=== PATIENT | male | born 1980 | race Two or more races ===

== ENCOUNTER 2020-01-03 20:19 | Emergency (ER) | payer MEDICAID ==
[~2020-01-03] VITALS: Ht 180.3 cm; Wt 77.3 kg
[2020-01-03] MEDS ORDERED: FLUORESCEIN SODIUM 1 MG STRIP OU ONE (22:45)
[2020-01-03] MEDS ORDERED: PROPARACAINE HCL 0.5% 15 ML OPHTHALMIC SOLUTION OU ONE (22:45)
[2020-01-03] MEDS ORDERED: IBUPROFEN 800 MG TABLET PO ONE (23:30)
[2020-01-04 00:06] VITALS: BP 140/97
== END 2020-01-04 00:53 | disposition home or self-care (01) ==
LOC: EMS 20:23
DX: T15.12XA Foreign body in conjunctival sac, left eye, initial encounter (principal); F12.10 Cannabis abuse, uncomplicated; W45.8XXA Other foreign body or object entering through skin, initial encounter; Y93.89 Activity, other specified; Y92.89 Other specified places as the place of occurrence of the external cause; Y99.0 Civilian activity done for income or pay
CPT/HCPCS: 99173

== ENCOUNTER 2023-09-23 09:19 | Inpatient (IN) | payer MEDICAID, OTHER ==
[~2023-09-23] VITALS: Ht 185.4 cm; Wt 74.6 kg
[2023-09-23 12:59] LABS: PH,URINE DRUG SCREEN 5.5 (5.0-8.0)
[2023-09-23 13:06] LABS: ALCOHOL, URINE DRUG SCREEN NEGATIVE (NEGATIVE); AMPHET/METH SCREEN,URINE NEGATIVE (NEGATIVE); BARBITURATE SCREEN, URINE NEGATIVE (NEGATIVE); BENZODIAZEPINES SCREEN,URINE NEGATIVE (NEGATIVE); CANNABINOID SCREEN,URINE POSITIVE (NEGATIVE); COCAINE SCREEN,URINE NEGATIVE (NEGATIVE); METHADONE SCREEN, URINE NEGATIVE (NEGATIVE); OPIATE SCREEN,URINE NEGATIVE (NEGATIVE); PHENCYCLIDINE SCREEN,URINE NEGATIVE (NEGATIVE)
[2023-09-23 13:15] LABS: BASOPHILS % (AUTO) 1.5 % (0.0-2.0); EOSINOPHILS % (AUTO) 1.3 % (1.0-6.0); HEMATOCRIT 42.7 % (41-53); HEMOGLOBIN 14.3 g/dL (13.5-17.5); LYMPHOCYTES # (AUTO) 1.1 K/uL (1.0-4.8); LYMPHOCYTES % (AUTO) 20.8 % (22.0-44.0); MEAN CORPUSCULAR HGB CONC 33.5 G/dL (31.0-37.0); MEAN CORPUSCULAR VOLUME 90 fL (80-100); MONOCYTES # (AUTO) 0.5 K/uL (0.1-1.0); MONOCYTES % (AUTO) 8.9 % (2.0-9.0); NEUTROPHILS # (AUTO) 3.6 K/uL (1.8-7.7); NEUTROPHILS % (AUTO) 67.5 % (40.0-70.0); PLATELET COUNT (AUTO) 203 K/uL (150-450); RED BLOOD CELL COUNT(AUTO) 4.77 MIL/uL (4.50-5.90); RED CELL DISTRIBUTION WIDTH 13.9 % (11.5-14.5); WHITE BLOOD COUNT (AUTO) 5.3 K/uL (4.5-11.0)
[2023-09-23 13:38] LABS: COVID AG,FIA SOURCE NASAL SWAB
[2023-09-23 13:48] LABS: ANION GAP 12 mmol/L (8-16); CALCIUM, TOTAL 9.5 mg/dL (8.8-10.5); CARBON DIOXIDE 25 mmol/L (22-29); CHLORIDE 103 mmol/L (98-107); CREATININE 0.78 mg/dL (0.60-1.30); GLOMERULAR FILTR. RATE CALC > 60 mL/min (>60); GLUCOSE,RANDOM 94 mg/dL (70-110); SODIUM SERUM 140 mmol/L (136-145); UREA NITROGEN, BLOOD 12 mg/dL (7-18)
[2023-09-23 13:50] LABS: SARS-COV2 (COVID) ANTIGEN,FIA Negative (Negative)
[2023-09-23 13:53] LABS: ALANINE AMINOTRANSFERASE 27 U/L (12-78); ALBUMIN 4.5 g/dL (3.4-5.0); ALKALINE PHOSPHATASE 94 U/L (46-116); ASPARTATE AMINOTRANSFERASE 22 U/L (15-37); TOTAL PROTEIN, SERUM 7.2 g/dL (6.4-8.2)
[2023-09-23 14:09] LABS: ALCOHOL, BLOOD (SERUM) < 3 mg/dL (0-10)
[2023-09-23] MEDS ORDERED: HALOPERIDOL 5 MG TABLET PO PRN (15:00)
[2023-09-23] MEDS ORDERED: ZOLPIDEM TARTRATE 10 MG TABLET PO PRN (15:00)
[2023-09-23] MEDS: LORazepam 2 MG TABLET PO PRN (16:24)
[2023-09-23 17:12] VITALS: BP 142/93; PULSE 76; RESP 18; TEMP 97.7
[2023-09-23] MEDS ORDERED: PNEUMOCOCCAL VACCINE POLYVALENT 0.5 ML SYRINGE [PPSV23] IM. ONE (17:30)
[2023-09-23] MEDS ORDERED: INFLUENZA VIRUS VACCINE QVS 2023-24 (6MO+)/PF 60 MCG/0.5 ML SYRINGE IM. ONE (17:30)
[2023-09-23 21:26] VITALS: BP 118/91; PULSE 81; RESP 18; TEMP 97.3
[2023-09-24] MEDS ORDERED: MAG HYDROX/ALUMINUM HYD/SIMETH ES 30 ML SUSPENSION UDCUP PO PRN (04:45)
[2023-09-24] MEDS ORDERED: BENZOCAINE/MENTHOL LOZENGE PO PRN (04:45)
[2023-09-24] MEDS ORDERED: ACETAMINOPHEN 325 MG TABLET PO PRN (04:45)
[2023-09-24] MEDS ORDERED: PETROLATUM,WHITE 28 GM JELLY TP PRN (04:45)
[2023-09-24] MEDS ORDERED: ONDANSETRON HCL 4 MG TABLET PO PRN (04:45)
[2023-09-24] MEDS ORDERED: MAGNESIUM HYDROXIDE SUSPENSION 30 ML UDCUP PO PRN (04:45)
[2023-09-24] MEDS ORDERED: DOCUSATE SODIUM 100 MG CAPSULE PO PRN (04:45)
[2023-09-24] MEDS ORDERED: BACITRACIN 28 GM OINTMENT TP PRN (04:45)
[2023-09-24] MEDS ORDERED: ALBUTEROL SULFATE HFA 90 MCG/PUFF 8 GM INHALER IH PRN (04:45)
[2023-09-24] MEDS ORDERED: IBUPROFEN 600 MG TABLET PO PRN (04:45)
[2023-09-24] MEDS ORDERED: CloNIDine HCL 0.1 MG TABLET PO PRN (04:45)
[2023-09-24] MEDS ORDERED: LOPERAMIDE HCL 2 MG CAPSULE PO PRN (04:45)
[2023-09-24] MEDS ORDERED: OMEPRAZOLE 20 MG CAPSULE PO PRN (04:45)
[2023-09-24] MEDS ORDERED: BENZOCAINE 10% 7 GM GEL TP PRN (09:00)
[2023-09-24] MEDS: BACITRACIN 28 GM OINTMENT TP SCH (09:00)
[2023-09-24 13:09] VITALS: BP 108/75; PULSE 87; RESP 18; TEMP 98.6
[2023-09-24 22:15] VITALS: BP 126/79; PULSE 65; RESP 18; TEMP 98.1
[2023-09-25 05:08] LABS: HEPATITIS A ANTIBODY IGM Negative (Negative); HEPATITIS B CORE IGM Negative (Negative); HEPATITIS C AB (EIA) Non Reactive (Non Reactive); HIV 1-2 SCREEN 4TH GEN W/RFLX Non Reactive (Non Reactive)
[2023-09-25] MEDS: CITALOPRAM HYDROBROMIDE 20 MG TABLET PO SCH (09:47)
[2023-09-25 10:39] VITALS: BP 122/80; PULSE 69; RESP 18; TEMP 97.6
[2023-09-25] MEDS: DIVALPROEX SODIUM 500 MG DR TABLET PO SCH (17:00)
[2023-09-25] MEDS: VALPROIC ACID 250 MG/5 ML SOLUTION UDCUP PO SCH (17:36)
[2023-09-25 21:35] VITALS: BP 130/77; PULSE 69; RESP 18; TEMP 98.5
[2023-09-26 08:52] VITALS: BP 138/88; PULSE 74; RESP 18; TEMP 98.2
[2023-09-26 22:16] VITALS: BP 131/79; PULSE 70; RESP 18; TEMP 98.2
[2023-09-27] MEDS ORDERED: CITA-144 PO (09:05)
[2023-09-27] MEDS ORDERED: DIVA-112 PO (09:05)
[2023-09-27 09:59] VITALS: BP 141/78; PULSE 77; RESP 18; TEMP 97.8
== END 2023-09-27 12:35 | disposition home or self-care (01) | DRG 754 ==
LOC: EMS 09:19 → 3EI 16:22
PROVIDERS: ADMIT Psychiatry & Neurology Psychiatry; ATTEND Psychiatry & Neurology Psychiatry
DX: F32.9 Major depressive disorder, single episode, unspecified (principal); R45.851 Suicidal ideations; F20.9 Schizophrenia, unspecified; F41.9 Anxiety disorder, unspecified; Z20.822 Contact with and (suspected) exposure to COVID-19; G47.00 Insomnia, unspecified; K59.00 Constipation, unspecified; K08.89 Other specified disorders of teeth and supporting structures; F12.90 Cannabis use, unspecified, uncomplicated
CPT/HCPCS: 70160; 80053; 80074; 80307; 85025; 86592; 87389; 99285; G0480